=== PATIENT | male | born 1945 | race Caucasian/White ===

== ENCOUNTER → 2021-11-24 01:34 | Outpatient (CLI) | payer MEDICARE, MEDICAID, SELFPAY ==
--- NOTE | 2021-11-24 | DI.NM_ITS ---
APPROVED REPORT Exam: Pharmacologic Patient Location: Out-Patient Room/Bed: Stress Nurse: Crystal Pak RN Ordering Provider:DANG PEREZ MD Contact Number: [phone] BMI: 38.27 Baseline Rhythm: Atrial Flutter, PVCs Indications: New cardiomyopathy, AFib paroxysmal Medical History Medical History: Paroxysmal AFib, AVR, thoracic aortic aneurysm, CVA w/ L sided defects, endocarditis , rectal cancer w/ resection, COPD, hypertension, diabetes, dementia, depression, chronic pain, [place], dysphagia, hx PNA, EF 30% (7/22) Cardiac Medications: Amlodipine, aspirin, insulin, glipizide, metoprolol succinate, potassium, xarelt o Allergies: Shellfish, coumadin, statins, fluoxitine, penicillamine Cardiac Risk Factors: Hypertension, diabetes, COPD, obesity Previous Cardiac Procedures: AVR, cardiac cath Pretest Chest Pain Characteristics: None Exercise History: Sedentary Physical Disabilities: L sided weakness from CVA Lung Sounds: Clear to auscultation Heart Sounds: Irregular Stress Test Details Test: Pharmacologic stress testing performed using 0.4 mg of regadenoson per 5 mL given IV over 10 s econds. Reason for pharmacologic stress test: physical limitation. Nuclear Acquisition: Rest Tc-99m/Stress Tc-99m 1 day Rest Isotope: Tc-99m Sestamibi. Dose: 10.5 Date: 11/24/2021 Injection Time: 0900 Stress Isotope: Tc-99m Sestamibi. Dose: 32.0 Date: 11/24/2021 Injection Time: 1045 HR Resting HR Supine: 66 bpm Max Heart Rate (APMHR): 144.225645 bpm Target HR (85% APMHR): 122.214666 bpm Max HR Achieved: 94 bpm % of APMHR: 65.28 Recovery HR: 78 bpm Comment: Metoprolol succinate not held prior to testing. BP Resting BP Supine: 120/58 mmHg Max BP: 120/58 mmHg Recovery BP: 108/56 mmHg ECG Resting ECG: Atrial Flutter Ectopy: PVCs Stress ECG: Atrial Flutter ST Change: No significant ST segment changes noted, Nondiagnostic low heart rate Arrhythmia: PVCs Recovery ECG: Atrial Flutter Recovery ST Change: No significant ST segment changes noted, Nondiagnostic low heart rate Recovery Arrhythmia: PVCs Clinical Stress Symptoms: Dyspnea Angina Score: None Rate Pressure Product: [id number] Stress ECG Conclusion 1. The resting electrocardiogram showed atrial flutter and an IVCD like an incomplete left bundle bra nch block 2. Patient underwent testing using pharmacologic stress with regadenoson 3. Heart rate achieved was 65% of predicted for age 4. Electrocardiographic portion of the test was nondiagnostic due to inadequate heart rate and restin g ST-T abnormalities 5. See MPI report Stress Test Summary STAGE HR BP SpO2 Symptoms NOTES Supine 66 120/58 92% Baseline mild SOB 1 min post Lexiscan injection 61 112/58 86% Moderate SOB 3 min post Lexiscan injection 69 102/68 84% 6 min post Lexiscan injection 78 108/58 90% SOB return to baseline MPI Conclusion Technically difficult study There is no myocardial ischemia. There is a small area of inferoapical infarction Ejection fraction is estimated at 23%. The LV is dilated and diffusely hypocontractile Radiologist Interpretation Radiologist agrees with Director Business Travel's Interpretation. Radiologist Interpretation by: Iker Menjivar MD Interpretation Date/Time: 11/26/2021 08:29:30
[2021-11-24] MEDS: Regadenoson 0.4 MG/5 ML SYR IVP (10:57)
== END ==
PROVIDERS: PCP Internal Medicine; Visit Provider Internal Medicine Interventional Cardiology
DX: I48.0 Paroxysmal atrial fibrillation (principal)
CPT/HCPCS: 78452; 93016; 93018; 93017; J2785